=== PATIENT | male | born 1965 | race Native Hawaiian/Other Pacific Islander ===

== ENCOUNTER 2018-12-27 09:50 | Outpatient (CLI) | payer BC ==
[2018-12-27 11:18] LABS: POTASSIUM 4.2 mmol/L (3.6-5.2)
[2018-12-27 11:37] LABS: PLATELET COUNT 151 K/uL (142-355)
== END 2018-12-27 23:12 | disposition home or self-care (01) ==
LOC: LABW 09:50
PROVIDERS: Internal Medicine
DX: N18.3 Chronic kidney disease, stage 3 (moderate) (principal)
CPT/HCPCS: 36415; 80053; 85027

== ENCOUNTER 2019-01-02 13:13 | Outpatient (CLI) | payer BC | END 2019-01-02 23:12 | disposition home or self-care (01) | LOC: CT 13:13 | DX: N18.3 Chronic kidney disease, stage 3 (moderate) (principal) ==

== ENCOUNTER 2019-02-02 13:09 | Outpatient (CLI) | payer BC ==
[2019-02-02 13:30] LABS: PLATELET COUNT 225 K/uL (142-355)
[2019-02-02 13:46] LABS: POTASSIUM 4.7 mmol/L (3.6-5.2)
== END 2019-02-02 23:32 | disposition home or self-care (01) ==
LOC: LABW 13:09
PROVIDERS: Internal Medicine
DX: N18.5 Chronic kidney disease, stage 5 (principal); Z79.899 Other long term (current) drug therapy
CPT/HCPCS: 36415; 80053; 82248; 85027